=== PATIENT | female | born 1945 | race Two or more races ===

== ENCOUNTER 2023-02-14 20:08 | Inpatient (IN) | payer MEDICARE, OTHER ==
[~2023-02-14] VITALS: Ht 154.9 cm; Wt 59.0 kg
[~2023-02-14 20:08] MED LIST: ONDA4TAB5 PO
[2023-02-14] MEDS ORDERED: HALOPERIDOL LACTATE INJ 5 MG/ML VIAL ONE (20:13)
[2023-02-14] MEDS ORDERED: HALOPERIDOL LACTATE INJ 5 MG/ML VIAL IM ONE (20:30)
[2023-02-14 21:15] LABS: BASOPHILS % (AUTO) 0.2 % (0.0-2.0); EOSINOPHILS # (AUTO) 0.1 K/uL (0.0-0.7); EOSINOPHILS % (AUTO) 0.4 % (0.0-6.0); HEMATOCRIT 38 % (33-45); HEMOGLOBIN 12.3 g/dL (11.5-14.8); LYMPHOCYTES # (AUTO) 2.2 K/uL (0.8-4.8); LYMPHOCYTES % (AUTO) 17.5 % (20.0-44.0); MEAN CORPUSCULAR HEMOGLOBIN 28 PG (26.0-33.0); MEAN CORPUSCULAR HGB CONC 33 g/dl (31.0-36.0); MEAN CORPUSCULAR VOLUME 87 fL (82-100); MONOCYTES # (AUTO) 1.5 K/uL (0.1-1.30); MONOCYTES % (AUTO) 11.6 % (2.0-12.0); NEUTROPHILS # (AUTO) 8.8 K/uL (1.8-8.9); NEUTROPHILS % (AUTO) 70.3 % (43.0-81.0); PLATELET COUNT (AUTO) 297 K/uL (150-450); RED BLOOD CELL COUNT(AUTO) 4.38 MIL/uL (4.0-5.2); RED CELL DISTRIBUTION WIDTH 13.8 % (11.5-15.0); WHITE BLOOD COUNT (AUTO) 12.6 K/uL (4.3-11.0)
[2023-02-14] MEDS ORDERED: LORAZEPAM INJ 2 MG/ML VIAL ONE (21:16)
[2023-02-14] MEDS ORDERED: LORAZEPAM INJ 2 MG/ML VIAL IM ONE (21:30)
[2023-02-14 21:37] LABS: APPEARANCE,URINE SLIGHTLY CLOUDY (CLEAR); BILIRUBIN,URINE NEGATIVE (NEGATIVE); BLOOD, URINE 1+ Ery/uL (NEGATIVE); COLOR,URINE YELLOW (YELLOW); KETONES,URINE NEGATIVE (NEGATIVE); LEUKOCYTE ESTERASE ,URINE 1+ (NEGATIVE); NITRITE, URINE NEGATIVE (NEGATIVE); PH,URINE 5.5 (5.0-8.0); PROTEIN,URINE NEGATIVE (NEGATIVE); UGLUCOSE NEGATIVE (NEGATIVE); UROBILINOGEN,URINE 0.2 EU/dL (0.2)
[2023-02-14 21:50] LABS: AMPHETAMINE, URINE NEGATIVE (NEGATIVE); BARBITURATE, URINE NEGATIVE (NEGATIVE); BENZODIAZEPINE, URINE NEGATIVE (NEGATIVE); CANNABINOID, URINE NEGATIVE (NEGATIVE); COCCAINE, URINE NEGATIVE (NEGATIVE); OPIATE, URINE NEGATIVE (NEGATIVE); PHENCYCLIDINE SCREEN,URINE NEGATIVE (NEGATIVE)
[2023-02-14 21:52] LABS: ADD URINE CULTURE YES; BACTERIA,URINE 3+ /HPF (None Seen)
[2023-02-14 21:53] LABS: CARBON DIOXIDE 22 mmol/L (21-32); CHLORIDE 109 mmol/L (98-107); CREATININE 1.3 mg/dL (0.6-1.3); GLUCOSE 116 mg/dL (74-106); POTASSIUM 4.5 mmol/L (3.5-5.1); SODIUM SERUM 143 mmol/L (136-145); UREA NITROGEN, BLOOD 19 mg/dL (7-18)
[2023-02-14 21:59] LABS: ACETAMINOPHEN 0 ug/ml (10-30); ALANINE AMINOTRANSFERASE 20 U/L (12-78); ALBUMIN 3.7 g/dL (3.4-5.0); ALCOHOL, BLOOD < 3 mg/dL (0-10); ALKALINE PHOSPHATASE 140 U/L (46-116); ASPARTATE AMINOTRANSFERASE 20 U/L (15-37); BILIRUBIN,DIRECT 0.1 mg/dL (0.0-0.2); BILIRUBIN,TOTAL 0.5 mg/dL (0.2-1.0); SALICYLATE 1.7 mg/dL (2.8-20.0)
[2023-02-15 03:00] VITALS: BP 112/89; TEMP 97.6
[2023-02-15] MEDS ORDERED: MAGNESIUM HYDROXIDE 30 ML UDC PO PRN ×2 (03:00→13:00)
[2023-02-15] MEDS ORDERED: MAG HYDROX/AL HYDROX/SIMETH 30 ML UDC PO PRN (03:00)
[2023-02-15] MEDS ORDERED: Z GUARD REMEDY 4 OZ OINT TP PRN (03:30)
[2023-02-15] MEDS ORDERED: BLOOD SUGAR DIAGNOSTIC 1 EACH STRIP IN ONE (03:30)
[2023-02-15] MEDS ORDERED: ASPI-1169 PO (03:58)
[2023-02-15] MEDS ORDERED: CHOL400T11 PO (03:59)
[2023-02-15] MEDS ORDERED: CRAN400C PO (04:02)
[2023-02-15] MEDS ORDERED: DOCU100C36 PO (04:03)
[2023-02-15] MEDS ORDERED: FAMO20TA8 PO (04:04)
[2023-02-15] MEDS ORDERED: ALBU8.5H8 INH (04:05)
[2023-02-15] MEDS ORDERED: PROP20TA7 PO (04:07)
[2023-02-15] MEDS ORDERED: QUET50TA PO (04:08)
[2023-02-15] MEDS ORDERED: QUET25TA PO (04:08)
[2023-02-15] MEDS ORDERED: SIMV-46 PO (04:09)
[2023-02-15] MEDS ORDERED: LEVO112T5 PO (04:10)
[2023-02-15] MEDS ORDERED: TRAM50TA2 PO (04:11)
[2023-02-15] MEDS ORDERED: ASCO-317 PO (04:12)
[2023-02-15 08:00] VITALS: BP 113/84; TEMP 98.1; O2SAT 98
[2023-02-15] MEDS ORDERED: BISA10SU11 RC (08:24)
[2023-02-15] MEDS ORDERED: ONDA4TAB5 PO (08:24)
[2023-02-15] MEDS ORDERED: POVI3780 TP (08:24)
[2023-02-15] MEDS ORDERED: NA P133E RC (08:24)
[2023-02-15] MEDS ORDERED: MAGN400O6 PO (08:24)
[2023-02-15] MEDS: QUETIAPINE FUMARATE 25 MG TABLET PO SCH ×2 (09:27→16:28)
[2023-02-15] MEDS ORDERED: ALBUTEROL FS 2.5 MG/0.5 ML VIAL.NEB NEB PRN (13:30)
[2023-02-15] MEDS: LORAZEPAM 0.5 MG TABLET PO PRN (15:35)
[2023-02-15 16:00] VITALS: BP 134/100; TEMP 97.9; O2SAT 96
[2023-02-15] MEDS: PROPRANOLOL HCL 10 MG TABLET PO SCH (16:47)
[2023-02-15 20:00] VITALS: BP 117/82; TEMP 98.3; O2SAT 98
[2023-02-15] MEDS: SIMVASTATIN 20 MG TABLET PO SCH (21:38)
[2023-02-15] MEDS ORDERED: QUETIAPINE FUMARATE 25 MG TABLET PO SCH (22:00)
[2023-02-16] MEDS ORDERED: LEVOFLOXACIN (250MG) 250 MG TABLET PO SCH ×2 (00:21→09:00)
[2023-02-16 07:40] LABS: BASOPHILS % (AUTO) 0.3 % (0.0-2.0); EOSINOPHILS # (AUTO) 0.1 K/uL (0.0-0.7); HEMATOCRIT 36 % (33-45); HEMOGLOBIN 11.8 g/dL (11.5-14.8); LYMPHOCYTES # (AUTO) 1.4 K/uL (0.8-4.8); LYMPHOCYTES % (AUTO) 19.3 % (20.0-44.0); MEAN CORPUSCULAR HEMOGLOBIN 29 PG (26.0-33.0); MEAN CORPUSCULAR HGB CONC 33 g/dl (31.0-36.0); MEAN CORPUSCULAR VOLUME 87 fL (82-100); MONOCYTES # (AUTO) 0.7 K/uL (0.1-1.30); NEUTROPHILS % (AUTO) 69.4 % (43.0-81.0); PLATELET COUNT (AUTO) 242 K/uL (150-450); RED BLOOD CELL COUNT(AUTO) 4.12 MIL/uL (4.0-5.2); RED CELL DISTRIBUTION WIDTH 14.1 % (11.5-15.0); WHITE BLOOD COUNT (AUTO) 7.3 K/uL (4.3-11.0)
[2023-02-16 07:59] LABS: CALCIUM, SERUM 9.1 mg/dL (8.5-10.1); CARBON DIOXIDE 24 mmol/L (21-32); CHLORIDE 107 mmol/L (98-107); CREATININE 0.9 mg/dL (0.6-1.3); GLUCOSE 91 mg/dL (74-106); POTASSIUM 3.6 mmol/L (3.5-5.1); SODIUM SERUM 141 mmol/L (136-145); UREA NITROGEN, BLOOD 23 mg/dL (7-18)
[2023-02-16 08:00] VITALS: BP 115/85; TEMP 97.6; O2SAT 100
[2023-02-16 08:01] LABS: CHOLESTEROL 145 mg/dL (<200); HDL CHOLESTEROL 78 mg/dL (40-60); LDL 62 mg/dL (0-99); TRIGLYCERIDES 45 mg/dL (30-150)
[2023-02-16] MEDS: DOCUSATE SODIUM 100 MG CAPSULE PO SCH (08:15)
[2023-02-16] MEDS: FAMOTIDINE (20 MG) 20 MG TABLET PO SCH (08:15)
[2023-02-16] MEDS: ASPIRIN 81 MG TAB.CHEW PO SCH (08:15)
[2023-02-16] MEDS: LEVOFLOXACIN (250MG) 250 MG TABLET PO SCH (08:15)
[2023-02-16] MEDS: PROPRANOLOL HCL 10 MG TABLET PO SCH ×2 (08:16→17:44)
[2023-02-16] MEDS: LEVOTHYROXINE SODIUM 112 MCG TABLET PO SCH (08:16)
[2023-02-16] MEDS: risperiDONE 0.25 MG TABLET PO SCH ×2 (08:57→17:43)
[2023-02-16] MEDS: LORAZEPAM 0.5 MG TABLET PO PRN (10:54)
[2023-02-16 16:00] VITALS: BP 119/86; TEMP 98; O2SAT 96
[2023-02-16 21:09] VITALS: BP 129/91; TEMP 97.9; O2SAT 98
[2023-02-16] MEDS: SIMVASTATIN 20 MG TABLET PO SCH ×2 (21:46→22:00)
[2023-02-17] MEDS: ASPIRIN 81 MG TAB.CHEW PO SCH (08:07)
[2023-02-17] MEDS: LEVOTHYROXINE SODIUM 112 MCG TABLET PO SCH (08:07)
[2023-02-17] MEDS: risperiDONE 0.25 MG TABLET PO SCH ×3 (08:07→17:10)
[2023-02-17] MEDS: FAMOTIDINE (20 MG) 20 MG TABLET PO SCH (08:07)
[2023-02-17] MEDS: DOCUSATE SODIUM 100 MG CAPSULE PO SCH (08:08)
[2023-02-17] MEDS: LEVOFLOXACIN (250MG) 250 MG TABLET PO SCH (08:08)
[2023-02-17] MEDS: PROPRANOLOL HCL 10 MG TABLET PO SCH ×2 (09:00→17:10)
[2023-02-17] MEDS: LORAZEPAM 1 MG TABLET PO PRN (11:06)
[2023-02-17 16:00] VITALS: BP 140/86; TEMP 97.8; O2SAT 97
[2023-02-17] MEDS: SIMVASTATIN 20 MG TABLET PO SCH (21:54)
[2023-02-17] MEDS: TEMAZEPAM 7.5 MG CAPSULE PO PRN (21:55)
[2023-02-18] MEDS: LORAZEPAM 1 MG TABLET PO PRN ×2 (01:47→15:48)
[2023-02-18 08:00] VITALS: BP 119/88; TEMP 97.6; O2SAT 99
[2023-02-18] MEDS: DOCUSATE SODIUM 100 MG CAPSULE PO SCH (08:21)
[2023-02-18] MEDS: LEVOTHYROXINE SODIUM 112 MCG TABLET PO SCH (08:21)
[2023-02-18] MEDS: FAMOTIDINE (20 MG) 20 MG TABLET PO SCH (08:22)
[2023-02-18] MEDS: LEVOFLOXACIN (250MG) 250 MG TABLET PO SCH (08:22)
[2023-02-18] MEDS: ASPIRIN 81 MG TAB.CHEW PO SCH (08:22)
[2023-02-18] MEDS: PROPRANOLOL HCL 10 MG TABLET PO SCH ×2 (08:23→17:03)
[2023-02-18] MEDS: risperiDONE 0.25 MG TABLET PO SCH ×4 (09:08→21:51)
[2023-02-18 16:00] VITALS: BP 100/70; TEMP 98.2; O2SAT 100
[2023-02-18 20:34] VITALS: BP 109/72; TEMP 97.9; O2SAT 100
[2023-02-18] MEDS: SIMVASTATIN 20 MG TABLET PO SCH (21:51)
[2023-02-19 08:00] VITALS: BP 127/83; TEMP 98.6; O2SAT 96
[2023-02-19] MEDS: risperiDONE 0.25 MG TABLET PO SCH ×4 (08:06→21:10)
[2023-02-19] MEDS: LEVOTHYROXINE SODIUM 112 MCG TABLET PO SCH (08:06)
[2023-02-19] MEDS: PROPRANOLOL HCL 10 MG TABLET PO SCH ×2 (08:06→16:49)
[2023-02-19] MEDS: DOCUSATE SODIUM 100 MG CAPSULE PO SCH (08:06)
[2023-02-19] MEDS: LEVOFLOXACIN (250MG) 250 MG TABLET PO SCH (08:06)
[2023-02-19] MEDS: ASPIRIN 81 MG TAB.CHEW PO SCH (08:06)
[2023-02-19] MEDS: FAMOTIDINE (20 MG) 20 MG TABLET PO SCH (08:07)
[2023-02-19 16:00] VITALS: BP 104/74; TEMP 98.1; O2SAT 97
[2023-02-19] MEDS: SIMVASTATIN 20 MG TABLET PO SCH (21:10)
[2023-02-19] MEDS: TEMAZEPAM 7.5 MG CAPSULE PO PRN (22:52)
[2023-02-20] MEDS: LEVOTHYROXINE SODIUM 112 MCG TABLET PO SCH (07:12)
[2023-02-20 08:00] VITALS: BP 110/83; TEMP 97.7; O2SAT 98
[2023-02-20] MEDS: risperiDONE 0.25 MG TABLET PO SCH ×3 (08:10→12:30)
[2023-02-20] MEDS: DOCUSATE SODIUM 100 MG CAPSULE PO SCH ×2 (08:10→08:22)
[2023-02-20] MEDS: FAMOTIDINE (20 MG) 20 MG TABLET PO SCH ×2 (08:10→08:22)
[2023-02-20] MEDS: LEVOFLOXACIN (250MG) 250 MG TABLET PO SCH ×2 (08:10→08:22)
[2023-02-20] MEDS: ASPIRIN 81 MG TAB.CHEW PO SCH ×2 (08:10→08:22)
[2023-02-20] MEDS: PROPRANOLOL HCL 10 MG TABLET PO SCH ×3 (08:11→16:41)
[2023-02-20] MEDS ORDERED: OLANZAPINE 10 MG VIAL IM STA ×2 (08:21→14:42)
[2023-02-20] MEDS: risperiDONE-M 0.5 MG TAB.RAPDIS PO SCH ×2 (16:58→22:00)
[2023-02-20 20:11] VITALS: BP 112/97; TEMP 99; O2SAT 100
[2023-02-20] MEDS: SIMVASTATIN 20 MG TABLET PO SCH (22:00)
[2023-02-20] MEDS: TEMAZEPAM 7.5 MG CAPSULE PO PRN (23:10)
[2023-02-21] MEDS: LEVOTHYROXINE SODIUM 112 MCG TABLET PO SCH (07:47)
[2023-02-21 08:00] VITALS: BP 122/84; TEMP 97.5; O2SAT 100
[2023-02-21] MEDS: FAMOTIDINE (20 MG) 20 MG TABLET PO SCH (08:02)
[2023-02-21] MEDS: DOCUSATE SODIUM 100 MG CAPSULE PO SCH (08:02)
[2023-02-21] MEDS: PROPRANOLOL HCL 10 MG TABLET PO SCH ×2 (08:02→17:00)
[2023-02-21] MEDS: risperiDONE-M 0.5 MG TAB.RAPDIS PO SCH ×3 (08:02→21:40)
[2023-02-21] MEDS: ASPIRIN 81 MG TAB.CHEW PO SCH (08:02)
[2023-02-21 16:00] VITALS: BP 100/70; TEMP 97.5; O2SAT 98
[2023-02-21] MEDS: SIMVASTATIN 20 MG TABLET PO SCH (21:40)
[2023-02-22] MEDS: LEVOTHYROXINE SODIUM 112 MCG TABLET PO SCH (06:30)
[2023-02-22 08:00] VITALS: BP 124/75; TEMP 97.6; O2SAT 100
[2023-02-22] MEDS: FAMOTIDINE (20 MG) 20 MG TABLET PO SCH (08:00)
[2023-02-22] MEDS: DOCUSATE SODIUM 100 MG CAPSULE PO SCH (08:00)
[2023-02-22] MEDS: ASPIRIN 81 MG TAB.CHEW PO SCH (08:00)
[2023-02-22] MEDS: PROPRANOLOL HCL 10 MG TABLET PO SCH ×2 (08:01→16:26)
[2023-02-22] MEDS: risperiDONE-M 0.5 MG TAB.RAPDIS PO SCH ×3 (08:01→21:30)
[2023-02-22] MEDS: TRAMADOL HCL 50 MG TABLET PO PRN (08:58)
[2023-02-22] MEDS: LORAZEPAM 1 MG TABLET PO PRN ×2 (10:56→22:07)
[2023-02-22 16:00] VITALS: BP 114/73; TEMP 98.1; O2SAT 99
[2023-02-22 20:12] VITALS: BP 130/79; TEMP 98.2; O2SAT 96
[2023-02-22] MEDS: SIMVASTATIN 20 MG TABLET PO SCH (21:30)
[2023-02-23 08:00] VITALS: BP 114/85; TEMP 98.2; O2SAT 93
[2023-02-23] MEDS: LEVOTHYROXINE SODIUM 112 MCG TABLET PO SCH (08:38)
[2023-02-23] MEDS: ASPIRIN 81 MG TAB.CHEW PO SCH (08:53)
[2023-02-23] MEDS: risperiDONE-M 0.5 MG TAB.RAPDIS PO SCH ×4 (08:53→21:17)
[2023-02-23] MEDS: FAMOTIDINE (20 MG) 20 MG TABLET PO SCH (08:53)
[2023-02-23] MEDS: DOCUSATE SODIUM 100 MG CAPSULE PO SCH (08:53)
[2023-02-23] MEDS: PROPRANOLOL HCL 10 MG TABLET PO SCH ×2 (08:54→16:21)
[2023-02-23 16:00] VITALS: BP 101/62; TEMP 97.6; O2SAT 99
[2023-02-23 20:03] VITALS: BP 111/76; TEMP 97.9; O2SAT 97
[2023-02-23] MEDS: SIMVASTATIN 20 MG TABLET PO SCH (21:17)
[2023-02-24 07:45] LABS: BASOPHILS % (AUTO) 0.3 % (0.0-2.0); EOSINOPHILS # (AUTO) 0.1 K/uL (0.0-0.7); HEMATOCRIT 35 % (33-45); HEMOGLOBIN 11.5 g/dL (11.5-14.8); LYMPHOCYTES # (AUTO) 1.7 K/uL (0.8-4.8); LYMPHOCYTES % (AUTO) 18.1 % (20.0-44.0); MEAN CORPUSCULAR HEMOGLOBIN 28 PG (26.0-33.0); MEAN CORPUSCULAR HGB CONC 33 g/dl (31.0-36.0); MEAN CORPUSCULAR VOLUME 86 fL (82-100); MONOCYTES # (AUTO) 0.7 K/uL (0.1-1.30); MONOCYTES % (AUTO) 7.2 % (2.0-12.0); NEUTROPHILS # (AUTO) 6.8 K/uL (1.8-8.9); NEUTROPHILS % (AUTO) 73.4 % (43.0-81.0); PLATELET COUNT (AUTO) 279 K/uL (150-450); RED BLOOD CELL COUNT(AUTO) 4.04 MIL/uL (4.0-5.2); RED CELL DISTRIBUTION WIDTH 13.9 % (11.5-15.0); WHITE BLOOD COUNT (AUTO) 9.2 K/uL (4.3-11.0)
[2023-02-24 08:00] VITALS: BP 114/75; TEMP 97.6; O2SAT 100
[2023-02-24 08:00] LABS: CALCIUM, SERUM 9.3 mg/dL (8.5-10.1); CARBON DIOXIDE 21 mmol/L (21-32); CHLORIDE 106 mmol/L (98-107); CREATININE 1.1 mg/dL (0.6-1.3); GLUCOSE 232 mg/dL (74-106); MAGNESIUM 2.4 mg/dL (1.8-2.4); PHOSPHORUS 2.8 mg/dL (2.5-4.9); POTASSIUM 3.5 mmol/L (3.5-5.1); SODIUM SERUM 141 mmol/L (136-145); UREA NITROGEN, BLOOD 23 mg/dL (7-18)
[2023-02-24] MEDS: LEVOTHYROXINE SODIUM 112 MCG TABLET PO SCH (08:32)
[2023-02-24] MEDS: risperiDONE-M 0.5 MG TAB.RAPDIS PO SCH ×4 (08:38→21:28)
[2023-02-24] MEDS: DOCUSATE SODIUM 100 MG CAPSULE PO SCH (08:38)
[2023-02-24] MEDS: FAMOTIDINE (20 MG) 20 MG TABLET PO SCH (08:38)
[2023-02-24] MEDS: ASPIRIN 81 MG TAB.CHEW PO SCH (08:38)
[2023-02-24] MEDS: PROPRANOLOL HCL 10 MG TABLET PO SCH ×2 (08:39→17:41)
[2023-02-24 16:00] VITALS: BP 107/73; TEMP 98.8; O2SAT 99
[2023-02-24 20:06] VITALS: BP 104/75; TEMP 98; O2SAT 100
[2023-02-24] MEDS: SIMVASTATIN 20 MG TABLET PO SCH (21:29)
[2023-02-25] MEDS: TRAMADOL HCL 50 MG TABLET PO PRN (01:02)
[2023-02-25 08:00] VITALS: BP 102/69; TEMP 98.7; O2SAT 97
[2023-02-25] MEDS: LEVOTHYROXINE SODIUM 112 MCG TABLET PO SCH (08:25)
[2023-02-25] MEDS: PROPRANOLOL HCL 10 MG TABLET PO SCH ×2 (09:00→17:15)
[2023-02-25] MEDS: DOCUSATE SODIUM 100 MG CAPSULE PO SCH (09:22)
[2023-02-25] MEDS: FAMOTIDINE (20 MG) 20 MG TABLET PO SCH (09:23)
[2023-02-25] MEDS: risperiDONE-M 0.5 MG TAB.RAPDIS PO SCH ×4 (09:23→21:18)
[2023-02-25] MEDS: ASPIRIN 81 MG TAB.CHEW PO SCH (09:23)
[2023-02-25 16:00] VITALS: BP 105/70; TEMP 98.6; O2SAT 99
[2023-02-25] MEDS: SIMVASTATIN 20 MG TABLET PO SCH (21:18)
[2023-02-26] MEDS: TRAMADOL HCL 50 MG TABLET PO PRN (01:15)
[2023-02-26] MEDS: LORAZEPAM 1 MG TABLET PO PRN ×2 (03:50→12:37)
[2023-02-26] MEDS: LEVOTHYROXINE SODIUM 112 MCG TABLET PO SCH (07:54)
[2023-02-26 08:00] VITALS: BP 113/77; TEMP 97.9; O2SAT 100
[2023-02-26] MEDS: ASPIRIN 81 MG TAB.CHEW PO SCH (09:38)
[2023-02-26] MEDS: DOCUSATE SODIUM 100 MG CAPSULE PO SCH (09:39)
[2023-02-26] MEDS: PROPRANOLOL HCL 10 MG TABLET PO SCH ×2 (09:39→16:15)
[2023-02-26] MEDS: FAMOTIDINE (20 MG) 20 MG TABLET PO SCH (09:40)
[2023-02-26] MEDS: risperiDONE-M 0.5 MG TAB.RAPDIS PO SCH ×4 (09:40→21:05)
[2023-02-26 15:38] VITALS: BP 129/100; TEMP 98.7; O2SAT 100
[2023-02-26 16:00] VITALS: BP 129/100; TEMP 98.7; O2SAT 100
[2023-02-26 20:33] VITALS: BP 125/80; TEMP 97.8; O2SAT 98
[2023-02-26] MEDS: SIMVASTATIN 20 MG TABLET PO SCH (21:05)
[2023-02-26] MEDS: TEMAZEPAM 7.5 MG CAPSULE PO PRN (21:49)
[2023-02-27] MEDS: LEVOTHYROXINE SODIUM 112 MCG TABLET PO SCH (07:28)
[2023-02-27 08:00] VITALS: BP 120/75; TEMP 97.6; O2SAT 98
[2023-02-27] MEDS: risperiDONE-M 0.5 MG TAB.RAPDIS PO SCH ×4 (08:06→22:25)
[2023-02-27] MEDS: ASPIRIN 81 MG TAB.CHEW PO SCH (08:06)
[2023-02-27] MEDS: DOCUSATE SODIUM 100 MG CAPSULE PO SCH (08:06)
[2023-02-27] MEDS: FAMOTIDINE (20 MG) 20 MG TABLET PO SCH (08:06)
[2023-02-27] MEDS: PROPRANOLOL HCL 10 MG TABLET PO SCH ×2 (08:07→16:58)
[2023-02-27] MEDS: LORAZEPAM 1 MG TABLET PO PRN ×4 (15:28→19:43)
[2023-02-27] MEDS: SIMVASTATIN 20 MG TABLET PO SCH (22:04)
[2023-02-27] MEDS ORDERED: risperiDONE-M 0.5 MG TAB.RAPDIS ONE (22:19)
[2023-02-28 06:51] LABS: BASOPHILS % (AUTO) 0.3 % (0.0-2.0); EOSINOPHILS # (AUTO) 0.1 K/uL (0.0-0.7); EOSINOPHILS % (AUTO) 0.9 % (0.0-6.0); HEMATOCRIT 33 % (33-45); HEMOGLOBIN 10.9 g/dL (11.5-14.8); LYMPHOCYTES # (AUTO) 1.9 K/uL (0.8-4.8); MEAN CORPUSCULAR HEMOGLOBIN 28 PG (26.0-33.0); MEAN CORPUSCULAR HGB CONC 33 g/dl (31.0-36.0); MEAN CORPUSCULAR VOLUME 86 fL (82-100); MONOCYTES # (AUTO) 0.6 K/uL (0.1-1.30); MONOCYTES % (AUTO) 7.5 % (2.0-12.0); NEUTROPHILS # (AUTO) 5.2 K/uL (1.8-8.9); NEUTROPHILS % (AUTO) 67.3 % (43.0-81.0); PLATELET COUNT (AUTO) 310 K/uL (150-450); RED BLOOD CELL COUNT(AUTO) 3.83 MIL/uL (4.0-5.2); RED CELL DISTRIBUTION WIDTH 14.3 % (11.5-15.0); WHITE BLOOD COUNT (AUTO) 7.8 K/uL (4.3-11.0)
[2023-02-28 07:01] LABS: BILIRUBIN,TOTAL 0.4 mg/dL (0.2-1.0); CALCIUM, SERUM 9.8 mg/dL (8.5-10.1); CREATININE 1.1 mg/dL (0.6-1.3); POTASSIUM 3.6 mmol/L (3.5-5.1); TOTAL PROTEIN, SERUM 6.3 g/dL (6.4-8.2)
[2023-02-28] MEDS: LEVOTHYROXINE SODIUM 112 MCG TABLET PO SCH (07:30)
[2023-02-28 08:00] VITALS: BP 127/80; TEMP 97.8; O2SAT 93
[2023-02-28] MEDS ORDERED: OLANZAPINE 10 MG VIAL IM ONE (08:30)
[2023-02-28] MEDS: FAMOTIDINE (20 MG) 20 MG TABLET PO SCH (08:34)
[2023-02-28] MEDS: PROPRANOLOL HCL 10 MG TABLET PO SCH ×2 (08:34→16:57)
[2023-02-28] MEDS: DOCUSATE SODIUM 100 MG CAPSULE PO SCH (08:34)
[2023-02-28] MEDS: ASPIRIN 81 MG TAB.CHEW PO SCH (08:34)
[2023-02-28] MEDS: risperiDONE-M 0.5 MG TAB.RAPDIS PO SCH ×4 (08:35→21:30)
[2023-02-28] MEDS ORDERED: LORAZEPAM INJ 2 MG/ML VIAL IM ONE (12:30)
[2023-02-28 16:00] VITALS: BP 110/61; TEMP 97.8; O2SAT 96
[2023-02-28] MEDS: LORAZEPAM 0.5 MG TABLET PO SCH (16:57)
[2023-02-28 20:00] VITALS: BP 123/81; TEMP 98.2; O2SAT 96
[2023-02-28] MEDS: SIMVASTATIN 20 MG TABLET PO SCH (21:31)
[2023-03-01 08:00] VITALS: BP 121/77; TEMP 98; O2SAT 100
[2023-03-01] MEDS: DOCUSATE SODIUM 100 MG CAPSULE PO SCH (08:50)
[2023-03-01] MEDS: risperiDONE-M 0.5 MG TAB.RAPDIS PO SCH ×4 (08:50→22:15)
[2023-03-01] MEDS: LEVOTHYROXINE SODIUM 112 MCG TABLET PO SCH (08:50)
[2023-03-01] MEDS: ASPIRIN 81 MG TAB.CHEW PO SCH (08:50)
[2023-03-01] MEDS: FAMOTIDINE (20 MG) 20 MG TABLET PO SCH (08:50)
[2023-03-01] MEDS: PROPRANOLOL HCL 10 MG TABLET PO SCH ×2 (08:51→17:33)
[2023-03-01] MEDS: LORAZEPAM 0.5 MG TABLET PO SCH ×3 (08:51→17:32)
[2023-03-01 16:00] VITALS: BP 113/75; TEMP 97.6; O2SAT 99
[2023-03-01] MEDS: BACITRACIN ZINC OINT (15 GM) 15 GM TUBE TP SCH (17:32)
[2023-03-01] MEDS: SIMVASTATIN 20 MG TABLET PO SCH (21:21)
[2023-03-01] MEDS: TEMAZEPAM 7.5 MG CAPSULE PO PRN (23:00)
[2023-03-02] MEDS: LORAZEPAM 1 MG TABLET PO PRN (01:04)
[2023-03-02 08:00] VITALS: BP 124/92; TEMP 97.7; O2SAT 96
[2023-03-02] MEDS: risperiDONE-M 0.5 MG TAB.RAPDIS PO SCH (09:00)
[2023-03-02] MEDS: ASPIRIN 81 MG TAB.CHEW PO SCH (09:15)
[2023-03-02] MEDS: LORAZEPAM 0.5 MG TABLET PO SCH ×3 (09:15→16:56)
[2023-03-02] MEDS: DOCUSATE SODIUM 100 MG CAPSULE PO SCH (09:17)
[2023-03-02] MEDS: LEVOTHYROXINE SODIUM 112 MCG TABLET PO SCH (09:17)
[2023-03-02] MEDS: PROPRANOLOL HCL 10 MG TABLET PO SCH ×2 (09:17→16:56)
[2023-03-02] MEDS: FAMOTIDINE (20 MG) 20 MG TABLET PO SCH (09:17)
[2023-03-02] MEDS: BACITRACIN ZINC OINT (15 GM) 15 GM TUBE TP SCH ×2 (09:30→17:53)
[2023-03-02] MEDS: RISPERIDONE 1 MG TAB.RAPDIS PO SCH ×3 (14:01→21:44)
[2023-03-02 16:00] VITALS: BP 121/74; TEMP 97.8; O2SAT 96
[2023-03-02] MEDS ORDERED: RISPERIDONE 1 MG TAB.RAPDIS PO SCH (17:00)
[2023-03-02] MEDS: SIMVASTATIN 20 MG TABLET PO SCH (21:44)
[2023-03-03 08:00] VITALS: BP 118/75; TEMP 97.9; O2SAT 96
[2023-03-03] MEDS: DOCUSATE SODIUM 100 MG CAPSULE PO SCH (08:09)
[2023-03-03] MEDS: LEVOTHYROXINE SODIUM 112 MCG TABLET PO SCH (08:09)
[2023-03-03] MEDS: FAMOTIDINE (20 MG) 20 MG TABLET PO SCH (08:10)
[2023-03-03] MEDS: LORAZEPAM 0.5 MG TABLET PO SCH ×3 (08:10→17:43)
[2023-03-03] MEDS: ASPIRIN 81 MG TAB.CHEW PO SCH (08:10)
[2023-03-03] MEDS: PROPRANOLOL HCL 10 MG TABLET PO SCH ×2 (08:11→17:43)
[2023-03-03] MEDS: BACITRACIN ZINC OINT (15 GM) 15 GM TUBE TP SCH ×2 (08:11→17:41)
[2023-03-03] MEDS: RISPERIDONE 1 MG TAB.RAPDIS PO SCH ×4 (08:32→21:15)
[2023-03-03 16:00] VITALS: BP 121/86; TEMP 97.8; O2SAT 97
[2023-03-03 20:44] VITALS: BP 106/70; TEMP 97.9; O2SAT 100
[2023-03-03] MEDS: SIMVASTATIN 20 MG TABLET PO SCH (21:16)
[2023-03-04] MEDS: TEMAZEPAM 7.5 MG CAPSULE PO PRN ×2 (00:33→23:00)
[2023-03-04] MEDS: LEVOTHYROXINE SODIUM 112 MCG TABLET PO SCH ×2 (07:30→08:28)
[2023-03-04 08:00] VITALS: BP 136/90; TEMP 97.9; O2SAT 98
[2023-03-04] MEDS: FAMOTIDINE (20 MG) 20 MG TABLET PO SCH ×2 (08:28→09:00)
[2023-03-04] MEDS: ASPIRIN 81 MG TAB.CHEW PO SCH ×2 (08:28→09:00)
[2023-03-04] MEDS: LORAZEPAM 0.5 MG TABLET PO SCH ×4 (08:28→17:00)
[2023-03-04] MEDS: DOCUSATE SODIUM 100 MG CAPSULE PO SCH ×2 (08:28→09:00)
[2023-03-04] MEDS: BACITRACIN ZINC OINT (15 GM) 15 GM TUBE TP SCH ×3 (08:29→17:00)
[2023-03-04] MEDS: PROPRANOLOL HCL 10 MG TABLET PO SCH ×3 (08:29→17:00)
[2023-03-04] MEDS: RISPERIDONE 1 MG TAB.RAPDIS PO SCH ×3 (09:00→17:00)
[2023-03-04] MEDS ORDERED: OLANZAPINE 10 MG VIAL IM ONE ×2 (10:00→15:30)
[2023-03-04] MEDS: LORAZEPAM 1 MG TABLET PO PRN ×2 (14:51→15:03)
[2023-03-04 16:00] VITALS: BP 121/90; TEMP 97.7; O2SAT 98
[2023-03-04 20:43] VITALS: BP 122/81; TEMP 97.5; O2SAT 100
[2023-03-04] MEDS: SIMVASTATIN 20 MG TABLET PO SCH (21:14)
[2023-03-05] MEDS: TRAMADOL HCL 50 MG TABLET PO PRN (01:31)
[2023-03-05 07:08] LABS: BASOPHILS % (AUTO) 0.4 % (0.0-2.0); EOSINOPHILS # (AUTO) 0.1 K/uL (0.0-0.7); EOSINOPHILS % (AUTO) 2.3 % (0.0-6.0); HEMATOCRIT 31 % (33-45); HEMOGLOBIN 10.1 g/dL (11.5-14.8); LYMPHOCYTES # (AUTO) 1.5 K/uL (0.8-4.8); LYMPHOCYTES % (AUTO) 25.4 % (20.0-44.0); MEAN CORPUSCULAR HEMOGLOBIN 29 PG (26.0-33.0); MEAN CORPUSCULAR HGB CONC 33 g/dl (31.0-36.0); MEAN CORPUSCULAR VOLUME 87 fL (82-100); MONOCYTES # (AUTO) 0.6 K/uL (0.1-1.30); MONOCYTES % (AUTO) 10.5 % (2.0-12.0); NEUTROPHILS # (AUTO) 3.7 K/uL (1.8-8.9); NEUTROPHILS % (AUTO) 61.4 % (43.0-81.0); PLATELET COUNT (AUTO) 333 K/uL (150-450); RED BLOOD CELL COUNT(AUTO) 3.54 MIL/uL (4.0-5.2); RED CELL DISTRIBUTION WIDTH 14.9 % (11.5-15.0)
[2023-03-05 07:36] LABS: ALBUMIN 2.8 g/dL (3.4-5.0); BILIRUBIN,TOTAL 0.4 mg/dL (0.2-1.0); CALCIUM, SERUM 9.1 mg/dL (8.5-10.1); CREATININE 0.9 mg/dL (0.6-1.3); POTASSIUM 3.4 mmol/L (3.5-5.1); TOTAL PROTEIN, SERUM 5.9 g/dL (6.4-8.2)
[2023-03-05 08:00] VITALS: BP 117/93; TEMP 97.7; O2SAT 96
[2023-03-05] MEDS: LEVOTHYROXINE SODIUM 112 MCG TABLET PO SCH (08:36)
[2023-03-05] MEDS: OLANZAPINE ZYDIS 5 MG TAB.RAPDIS PO SCH ×3 (08:37→16:21)
[2023-03-05] MEDS: DOCUSATE SODIUM 100 MG CAPSULE PO SCH (08:37)
[2023-03-05] MEDS: LORAZEPAM 0.5 MG TABLET PO SCH ×3 (08:38→16:21)
[2023-03-05] MEDS: PROPRANOLOL HCL 10 MG TABLET PO SCH ×2 (08:38→16:20)
[2023-03-05] MEDS: ASPIRIN 81 MG TAB.CHEW PO SCH (08:39)
[2023-03-05] MEDS: FAMOTIDINE (20 MG) 20 MG TABLET PO SCH (08:39)
[2023-03-05] MEDS: BACITRACIN ZINC OINT (15 GM) 15 GM TUBE TP SCH ×2 (08:39→16:21)
[2023-03-05] MEDS ORDERED: POTASSIUM CHLORIDE 20 MEQ TAB.PRT.SR PO SCH (10:00)
[2023-03-05 16:07] VITALS: BP 114/77; TEMP 97.9; O2SAT 96
[2023-03-05] MEDS: TEMAZEPAM 7.5 MG CAPSULE PO PRN (21:23)
[2023-03-05] MEDS: SIMVASTATIN 20 MG TABLET PO SCH (21:23)
[2023-03-05 21:35] VITALS: BP 115/69; TEMP 97.8; O2SAT 100
[2023-03-06 08:00] VITALS: BP 112/68; TEMP 97.8; O2SAT 97
[2023-03-06] MEDS: LORAZEPAM 0.5 MG TABLET PO SCH ×3 (09:48→17:16)
[2023-03-06] MEDS: FAMOTIDINE (20 MG) 20 MG TABLET PO SCH (09:48)
[2023-03-06] MEDS: ASPIRIN 81 MG TAB.CHEW PO SCH (09:48)
[2023-03-06] MEDS: LEVOTHYROXINE SODIUM 112 MCG TABLET PO SCH (09:48)
[2023-03-06] MEDS: PROPRANOLOL HCL 10 MG TABLET PO SCH ×2 (09:49→17:17)
[2023-03-06] MEDS: OLANZAPINE ZYDIS 5 MG TAB.RAPDIS PO SCH ×3 (09:50→17:16)
[2023-03-06] MEDS: DOCUSATE SODIUM 100 MG CAPSULE PO SCH (09:50)
[2023-03-06] MEDS: BACITRACIN ZINC OINT (15 GM) 15 GM TUBE TP SCH ×2 (09:55→17:23)
[2023-03-06 16:00] VITALS: BP_SYST 106; BP_SYST 127; BP_DIAS 69; BP_DIAS 83; TEMP 97.8; TEMP 98.5; O2SAT 98
[2023-03-06 20:21] VITALS: BP 104/65; TEMP 99; O2SAT 97
[2023-03-06] MEDS: SIMVASTATIN 20 MG TABLET PO SCH (21:06)
[2023-03-06] MEDS: TEMAZEPAM 7.5 MG CAPSULE PO PRN (21:07)
[2023-03-07] MEDS: LORAZEPAM 1 MG TABLET PO PRN (02:34)
[2023-03-07 08:00] VITALS: BP 126/94; TEMP 97.8; O2SAT 98
[2023-03-07] MEDS: ASPIRIN 81 MG TAB.CHEW PO SCH (08:17)
[2023-03-07] MEDS: LEVOTHYROXINE SODIUM 112 MCG TABLET PO SCH (08:17)
[2023-03-07 08:18] VITALS: BP 126/94
[2023-03-07] MEDS: OLANZAPINE ZYDIS 5 MG TAB.RAPDIS PO SCH ×2 (08:18→12:51)
[2023-03-07] MEDS: DOCUSATE SODIUM 100 MG CAPSULE PO SCH (08:18)
[2023-03-07] MEDS: LORAZEPAM 0.5 MG TABLET PO SCH ×2 (08:18→12:51)
[2023-03-07] MEDS: PROPRANOLOL HCL 10 MG TABLET PO SCH (08:18)
[2023-03-07] MEDS: FAMOTIDINE (20 MG) 20 MG TABLET PO SCH (08:19)
[2023-03-07] MEDS: BACITRACIN ZINC OINT (15 GM) 15 GM TUBE TP SCH (09:07)
== END 2023-03-07 13:30 | DRG 885 ==
LOC: ER 20:09 → GPS 02-15 01:25
PROVIDERS: ADMIT Nurse Practitioner Psychiatric/Mental Health; ATTEND Legal Medicine
DX: F20.9 Schizophrenia, unspecified (principal); N18.9 Chronic kidney disease, unspecified; F03.918 Unspecified dementia, unspecified severity, with other behavioral disturbance; N39.0 Urinary tract infection, site not specified; F03.94 Unspecified dementia, unspecified severity, with anxiety; F03.93 Unspecified dementia, unspecified severity, with mood disturbance; F03.911 Unspecified dementia, unspecified severity, with agitation; F29 Unspecified psychosis not due to a substance or known physiological condition; I12.9 Hypertensive chronic kidney disease with stage 1 through stage 4 chronic kidney disease, or unspecified chronic kidney disease; E11.22 Type 2 diabetes mellitus with diabetic chronic kidney disease; K21.9 Gastro-esophageal reflux disease without esophagitis; Z87.19 Personal history of other diseases of the digestive system; Z91.148 Patient's other noncompliance with medication regimen for other reason; M47.9 Spondylosis, unspecified; K64.9 Unspecified hemorrhoids; Z88.0 Allergy status to penicillin; Z88.6 Allergy status to analgesic agent; Z88.8 Allergy status to other drugs, medicaments and biological substances; Z79.899 Other long term (current) drug therapy; E78.5 Hyperlipidemia, unspecified; E03.9 Hypothyroidism, unspecified; M19.90 Unspecified osteoarthritis, unspecified site; I25.10 Atherosclerotic heart disease of native coronary artery without angina pectoris; M20.41 Other hammer toe(s) (acquired), right foot; M20.42 Other hammer toe(s) (acquired), left foot; M21.612 Bunion of left foot; M21.611 Bunion of right foot; D72.829 Elevated white blood cell count, unspecified; F41.9 Anxiety disorder, unspecified; F32.A Depression, unspecified
CPT/HCPCS: 36415; 71045-TC; 76705-TC; 80048-TC; 80053-TC; 80061-TC; 80076-TC; 81001; 83690-TC; 83735-TC; 84100-TC; 84484-TC; 85025-TC; 87081-TC; 87086-TC; 97116-TC; 97530-TC; C9803; G0480; J1630; J2060; J3490

== ENCOUNTER 2024-10-01 14:54 | Inpatient (IN) | payer MEDICARE, OTHER ==
[~2024-10-01] VITALS: Ht 162.6 cm; Wt 71.2 kg
[~2024-10-01 14:54] MED LIST changes: +ALBU8.5H8 INH; +ASCO-317 PO; +ASPI-1169 PO; +BISA10SU11 RC; +CHOL400T11 PO; +CRAN400C PO; +DOCU100C36 PO; +FAMO20TA8 PO; +LEVO112T5 PO; +MAGN400O6 PO; +NA P133E RC; +POVI3780 TP; +PROP20TA7 PO; +QUET25TA PO; +QUET50TA PO; +SIMV-46 PO; +TRAM50TA2 PO
[2024-10-01 15:25] LABS: BASOPHILS # (AUTO) 0.1 K/uL (0.0-0.2); BASOPHILS % (AUTO) 0.5 % (0.0-2.0); EOSINOPHILS # (AUTO) 0.2 K/uL (0.0-0.7); EOSINOPHILS % (AUTO) 1.5 % (0.0-6.0); HEMATOCRIT 37 % (33-45); HEMOGLOBIN 12.2 g/dL (11.5-14.8); LYMPHOCYTES # (AUTO) 1.5 K/uL (0.8-4.8); LYMPHOCYTES % (AUTO) 14.5 % (20.0-44.0); MEAN CORPUSCULAR HEMOGLOBIN 30 PG (26.0-33.0); MEAN CORPUSCULAR HGB CONC 33 g/dl (31.0-36.0); MEAN CORPUSCULAR VOLUME 90 fL (82-100); MONOCYTES # (AUTO) 0.7 K/uL (0.1-1.30); MONOCYTES % (AUTO) 6.4 % (2.0-12.0); NEUTROPHILS # (AUTO) 7.9 K/uL (1.8-8.9); NEUTROPHILS % (AUTO) 77.1 % (43.0-81.0); PLATELET COUNT (AUTO) 269 K/uL (150-450); RED BLOOD CELL COUNT(AUTO) 4.07 MIL/uL (4.0-5.2); RED CELL DISTRIBUTION WIDTH 13.8 % (11.5-15.0); WHITE BLOOD COUNT (AUTO) 10.3 K/uL (4.3-11.0)
[2024-10-01 15:49] LABS: CALCIUM, SERUM 10.1 mg/dL (8.5-10.1); CARBON DIOXIDE 25 mmol/L (21-32); CHLORIDE 110 mmol/L (98-107); CREATININE 1.1 mg/dL (0.6-1.3); GLUCOSE 164 mg/dL (74-106); SODIUM SERUM 144 mmol/L (136-145); UREA NITROGEN, BLOOD 18 mg/dL (7-18)
[2024-10-01 15:55] LABS: ALANINE AMINOTRANSFERASE 24 U/L (12-78); ALKALINE PHOSPHATASE 140 U/L (46-116); ASPARTATE AMINOTRANSFERASE 15 U/L (15-37); BILIRUBIN,DIRECT 0.1 mg/dL (0.0-0.2); BILIRUBIN,TOTAL 0.4 mg/dL (0.2-1.0); SALICYLATE 1.6 mg/dL (2.8-20.0); TOTAL PROTEIN, SERUM 7.1 g/dL (6.4-8.2)
[2024-10-01 15:56] LABS: ACETAMINOPHEN <10 ug/ml (10-30); ALCOHOL, BLOOD < 3 mg/dL (0-10)
[2024-10-01] MEDS ORDERED: HALO5TAB8 PO (16:28)
[2024-10-01] MEDS ORDERED: CHLO25AM IM (16:28)
[2024-10-01] MEDS ORDERED: LIDO30CR47 TP (16:28)
[2024-10-01] MEDS ORDERED: FAMO20TA80 PO (16:28)
[2024-10-01] MEDS ORDERED: PROP20TA7 PO (16:28)
[2024-10-01] MEDS ORDERED: GUAI400T11 PO (16:28)
[2024-10-01] MEDS ORDERED: CHOL100062 PO (16:28)
[2024-10-01] MEDS ORDERED: ESCI5TAB PO (16:28)
[2024-10-01] MEDS ORDERED: GABA-532 PO (16:28)
[2024-10-01] MEDS ORDERED: VALP250S4 PO (16:28)
[2024-10-01] MEDS ORDERED: LORA-259 PO (16:28)
[2024-10-01] MEDS ORDERED: SENN8.6T19 PO (16:28)
[2024-10-01] MEDS ORDERED: TAMS-12 PO (16:28)
[2024-10-01] MEDS ORDERED: BISA5TAB10 PO (16:28)
[2024-10-01] MEDS ORDERED: LEVO137T24 PO (16:28)
[2024-10-01] MEDS ORDERED: BETH5TAB2 PO (16:28)
[2024-10-01] MEDS ORDERED: BENZ1TAB7 PO (16:28)
[2024-10-01] MEDS ORDERED: APIX5TAB PO (16:28)
[2024-10-01] MEDS ORDERED: MULT-594 PO (16:28)
[2024-10-01] MEDS ORDERED: SULF1TAB47 PO (16:28)
[2024-10-01 16:43] LABS: APPEARANCE,URINE CLEAR (CLEAR); BILIRUBIN,URINE NEGATIVE (NEGATIVE); BLOOD, URINE NEGATIVE Ery/uL (NEGATIVE); COLOR,URINE YELLOW (YELLOW); KETONES,URINE NEGATIVE (NEGATIVE); LEUKOCYTE ESTERASE ,URINE TRACE (NEGATIVE); NITRITE, URINE NEGATIVE (NEGATIVE); PROTEIN,URINE NEGATIVE (NEGATIVE); UGLUCOSE NEGATIVE (NEGATIVE); UROBILINOGEN,URINE 0.2 EU/dL (0.2)
[2024-10-01 16:57] LABS: ADD URINE CULTURE NO; AMPHETAMINE, URINE NEGATIVE (NEGATIVE); BACTERIA,URINE Rare /HPF (None Seen); BARBITURATE, URINE NEGATIVE (NEGATIVE); BENZODIAZEPINE, URINE POSITIVE (NEGATIVE); CANNABINOID, URINE NEGATIVE (NEGATIVE); COCCAINE, URINE NEGATIVE (NEGATIVE); OPIATE, URINE NEGATIVE (NEGATIVE); PHENCYCLIDINE SCREEN,URINE NEGATIVE (NEGATIVE); RBC,URINE 0-2 /HPF (0-2)
[2024-10-01 16:58] LABS: MUCUS,URINE Few /LPF (None Seen)
[2024-10-01 18:17] VITALS: BP 118/85; TEMP 98.1; O2SAT 95
[2024-10-01] MEDS ORDERED: MAGNESIUM HYDROXIDE 30 ML UDC PO PRN (18:30)
[2024-10-01] MEDS: BLOOD SUGAR DIAGNOSTIC 1 EACH STRIP IN ONE (18:30)
[2024-10-01] MEDS ORDERED: QUETIAPINE FUMARATE 25 MG TABLET PO PRN (18:30)
[2024-10-01] MEDS ORDERED: MAG HYDROX/AL HYDROX/SIMETH 30 ML UDC PO PRN (18:30)
[2024-10-01 20:00] VITALS: BP 98/69; TEMP 97.7; O2SAT 99
[2024-10-01] MEDS: TRAMADOL HCL 50 MG TABLET PO ONE (22:22)
[2024-10-02] MEDS ORDERED: BISACODYL (5 MG) 5 MG TABLET.DR PO PRN (00:30)
[2024-10-02] MEDS ORDERED: MAGNESIUM HYDROXIDE 30 ML UDC PO PRN (00:30)
[2024-10-02 07:35] LABS: BILIRUBIN,TOTAL 0.6 mg/dL (0.2-1.0); CALCIUM, SERUM 9.9 mg/dL (8.5-10.1); POTASSIUM 3.6 mmol/L (3.5-5.1)
[2024-10-02 07:37] LABS: CHOLESTEROL 113 mg/dL (<200); HDL CHOLESTEROL 63 mg/dL (40-60); LDL 40 mg/dL (0-99); TRIGLYCERIDES 61 mg/dL (30-150)
[2024-10-02] MEDS: LEVOTHYROXINE SODIUM 137 MCG TABLET PO SCH (07:54)
[2024-10-02 08:00] VITALS: BP 127/83; TEMP 97.6; O2SAT 99
[2024-10-02] MEDS: BETHANECHOL CHLORIDE (25 MG) 25 MG TABLET PO SCH (08:31)
[2024-10-02] MEDS: MULTIVIT W/MINERALS 1 TAB TABLET PO SCH (08:31)
[2024-10-02] MEDS: CHOLECALCIFEROL 1,000 UNIT TABLET (VIT D3) PO SCH (08:31)
[2024-10-02] MEDS: CEPHALEXIN MONOHYDRATE 500 MG CAPSULE PO SCH (08:31)
[2024-10-02] MEDS: PROPRANOLOL HCL 10 MG TABLET PO SCH (08:32)
[2024-10-02] MEDS: APIXABAN 5 MG TABLET PO SCH (08:33)
[2024-10-02] MEDS ORDERED: VALPROIC ACID 250 MG/5 ML UDC PO SCH (09:00)
[2024-10-02] MEDS: GABAPENTIN 100 MG CAPSULE PO SCH (09:00)
[2024-10-02] MEDS: OLANZAPINE 10 MG VIAL IM ONE (13:37)
[2024-10-02 16:00] VITALS: BP 101/82; TEMP 98; O2SAT 98
[2024-10-02] MEDS: risperiDONE 1 MG TABLET PO SCH (17:40)
[2024-10-02 19:05] LABS: CREATININE 1.1 mg/dL (0.6-1.3)
[2024-10-02 20:10] VITALS: BP 90/60; TEMP 97.9; O2SAT 98
[2024-10-02] MEDS: SIMVASTATIN 20 MG TABLET PO SCH (21:12)
[2024-10-02] MEDS: TAMSULOSIN 0.4 MG CAP.SR.24H PO SCH (21:12)
[2024-10-02] MEDS: FAMOTIDINE (20 MG) 20 MG TABLET PO SCH (21:12)
[2024-10-02] MEDS: VALPROIC ACID 250 MG/5 ML UDC PO SCH (21:12)
[2024-10-03 07:30] VITALS: BP 127/78; TEMP 96.9; O2SAT 97
[2024-10-03] MEDS: SENNOSIDES 8.6 MG TABLET PO PRN (09:18)
[2024-10-03 16:00] VITALS: BP 97/80; TEMP 98.2; O2SAT 97
[2024-10-03 20:00] VITALS: BP 100/70; TEMP 98.1; O2SAT 98
[2024-10-03 20:32] VITALS: BP 100/70; TEMP 98.1; O2SAT 98
[2024-10-04 08:39] VITALS: BP 100/84; TEMP 97.7; O2SAT 100
[2024-10-04] MEDS: OLANZAPINE 10 MG VIAL IM ONE (09:44)
[2024-10-04 16:00] VITALS: BP 94/82; TEMP 97.8; O2SAT 97
[2024-10-04 20:40] VITALS: BP 98/66; TEMP 99.3; O2SAT 99
[2024-10-05 08:00] VITALS: BP 100/74; TEMP 98.1; O2SAT 98
[2024-10-05 16:00] VITALS: BP 105/75; TEMP 98.6; O2SAT 98
[2024-10-05 20:00] VITALS: BP 109/73; TEMP 98.6; O2SAT 98
[2024-10-05] MEDS: Z GUARD REMEDY 4 OZ OINT TP SCH (21:08)
[2024-10-06 08:00] VITALS: BP 99/75; TEMP 97.8; O2SAT 96
[2024-10-06 16:15] VITALS: BP 97/74; TEMP 98.1; O2SAT 98
[2024-10-06 20:00] VITALS: BP 102/83; TEMP 98.2; O2SAT 95
[2024-10-06 21:25] VITALS: BP 102/83; TEMP 98.2; O2SAT 98
[2024-10-07] MEDS: ZOLPIDEM TARTRATE 5 MG TABLET PO PRN (02:44)
[2024-10-07 07:34] LABS: BASOPHILS % (AUTO) 0.4 % (0.0-2.0); EOSINOPHILS # (AUTO) 0.3 K/uL (0.0-0.7); EOSINOPHILS % (AUTO) 5.1 % (0.0-6.0); HEMATOCRIT 35 % (33-45); HEMOGLOBIN 11.4 g/dL (11.5-14.8); LYMPHOCYTES % (AUTO) 30.5 % (20.0-44.0); MEAN CORPUSCULAR HEMOGLOBIN 30 PG (26.0-33.0); MEAN CORPUSCULAR HGB CONC 33 g/dl (31.0-36.0); MEAN CORPUSCULAR VOLUME 92 fL (82-100); MONOCYTES # (AUTO) 0.7 K/uL (0.1-1.30); MONOCYTES % (AUTO) 11.2 % (2.0-12.0); NEUTROPHILS # (AUTO) 3.4 K/uL (1.8-8.9); NEUTROPHILS % (AUTO) 52.8 % (43.0-81.0); PLATELET COUNT (AUTO) 256 K/uL (150-450); RED BLOOD CELL COUNT(AUTO) 3.79 MIL/uL (4.0-5.2); RED CELL DISTRIBUTION WIDTH 13.9 % (11.5-15.0); WHITE BLOOD COUNT (AUTO) 6.4 K/uL (4.3-11.0)
[2024-10-07 08:00] VITALS: BP 115/81; TEMP 98.2; O2SAT 99
[2024-10-07 08:50] LABS: CALCIUM, SERUM 9.5 mg/dL (8.5-10.1); MAGNESIUM 2.6 mg/dL (1.8-2.4); PHOSPHORUS 4.2 mg/dL (2.5-4.9); POTASSIUM 3.8 mmol/L (3.5-5.1)
[2024-10-07 16:10] VITALS: BP 100/67; TEMP 98.6; O2SAT 97
[2024-10-07] MEDS: risperiDONE 1 MG TABLET PO SCH (17:27)
[2024-10-07 20:04] VITALS: BP 97/73; TEMP 97.5; O2SAT 98
[2024-10-08 08:00] VITALS: BP 90/73; TEMP 97.5; O2SAT 98
[2024-10-08 16:00] VITALS: BP 110/71; TEMP 97.6; O2SAT 97
[2024-10-08 20:36] VITALS: BP 96/70; TEMP 97.5; O2SAT 99
[2024-10-09 05:57] VITALS: BP 96/70; TEMP 97.5; O2SAT 99
[2024-10-09 08:00] VITALS: BP 110/97; TEMP 98; O2SAT 94
[2024-10-09] MEDS: VALPROIC ACID 250 MG/5 ML UDC PO SCH (14:15)
[2024-10-09 16:00] VITALS: BP 119/69; TEMP 98.6; O2SAT 96
[2024-10-09] MEDS: risperiDONE 1 MG TABLET PO SCH (16:48)
[2024-10-09 20:09] VITALS: BP 94/65; TEMP 98.2; O2SAT 97
[2024-10-10 08:00] VITALS: BP 99/79; TEMP 97.9; O2SAT 98
[2024-10-10 16:00] VITALS: BP 104/79; TEMP 97.7; O2SAT 96
[2024-10-10 20:32] VITALS: BP 115/68; TEMP 97.8; O2SAT 98
[2024-10-11 08:00] VITALS: BP 115/91; TEMP 98.6; O2SAT 98
[2024-10-11] MEDS ORDERED: NOREPINEPHRINE 8 MG in IV D5W 242 ML IV PRN (14:00)
[2024-10-11 14:03] LABS: ABG BASE EXCESS -1.8 mmol/L (-2.0-3.0); ABG OXYGEN SATURATION 86.6 % (94.0-98.0); ABG PCO2 43.6 mmHg (32.0-45.0); ABG PH 7.354 (7.350-7.450); ABG PO2 56.4 mmHg (83.0-108.0); ABG TOTAL HEMOGLOBIN 12.5 G/dL (12.0-16.0); MetHb 0.2 % (0.0-1.5); O2Hb 86.4 % (94.0-97.0); SITE, ABG RIGHT RADIAL
[2024-10-11 14:23] VITALS: BP 72/45; TEMP 96.8; O2SAT 82
[2024-10-11 15:15] LABS: BASOPHILS % (AUTO) 0.1 % (0.0-2.0); EOSINOPHILS # (AUTO) 0.1 K/uL (0.0-0.7); EOSINOPHILS % (AUTO) 0.7 % (0.0-6.0); HEMATOCRIT 39 % (33-45); HEMOGLOBIN 12.9 g/dL (11.5-14.8); LYMPHOCYTES % (AUTO) 10.8 % (20.0-44.0); MEAN CORPUSCULAR HEMOGLOBIN 30 PG (26.0-33.0); MEAN CORPUSCULAR HGB CONC 33 g/dl (31.0-36.0); MEAN CORPUSCULAR VOLUME 90 fL (82-100); MONOCYTES # (AUTO) 0.3 K/uL (0.1-1.30); MONOCYTES % (AUTO) 2.8 % (2.0-12.0); NEUTROPHILS # (AUTO) 7.7 K/uL (1.8-8.9); NEUTROPHILS % (AUTO) 85.6 % (43.0-81.0); PLATELET COUNT (AUTO) 380 K/uL (150-450); RED BLOOD CELL COUNT(AUTO) 4.32 MIL/uL (4.0-5.2); RED CELL DISTRIBUTION WIDTH 14.2 % (11.5-15.0)
[2024-10-11 15:44] LABS: ALBUMIN 3.3 g/dL (3.4-5.0); BILIRUBIN,DIRECT 0.2 mg/dL (0.0-0.2); BILIRUBIN,TOTAL 0.4 mg/dL (0.2-1.0); CALCIUM, SERUM 9.8 mg/dL (8.5-10.1); CREATININE 1.1 mg/dL (0.6-1.3); POTASSIUM 3.2 mmol/L (3.5-5.1); TOTAL PROTEIN, SERUM 7.3 g/dL (6.4-8.2)
== END 2024-10-11 13:57 | disposition short-term general hospital (02) | DRG 885 ==
LOC: ER 15:00 → GPS 17:33
PROVIDERS: ADMIT Psychiatry & Neurology Psychiatry; ATTEND Nurse Practitioner Family
DX: F20.0 Paranoid schizophrenia (principal); G93.41 Metabolic encephalopathy; F01.511 Vascular dementia, unspecified severity, with agitation; F01.52 Vascular dementia, unspecified severity, with psychotic disturbance; N39.0 Urinary tract infection, site not specified; E78.5 Hyperlipidemia, unspecified; E03.9 Hypothyroidism, unspecified; K21.9 Gastro-esophageal reflux disease without esophagitis; B96.20 Unspecified Escherichia coli [E. coli] as the cause of diseases classified elsewhere; E88.09 Other disorders of plasma-protein metabolism, not elsewhere classified; I10 Essential (primary) hypertension; Z88.6 Allergy status to analgesic agent; I25.10 Atherosclerotic heart disease of native coronary artery without angina pectoris; M45.6 Ankylosing spondylitis lumbar region; G89.29 Other chronic pain; R03.1 Nonspecific low blood-pressure reading; R73.9 Hyperglycemia, unspecified; R09.89 Other specified symptoms and signs involving the circulatory and respiratory systems; Z88.0 Allergy status to penicillin; Z91.410 Personal history of adult physical and sexual abuse; Z88.8 Allergy status to other drugs, medicaments and biological substances; Z79.899 Other long term (current) drug therapy; Z79.82 Long term (current) use of aspirin
CPT/HCPCS: 36415; 80048-TC; 80053-TC; 80061-TC; 80076-TC; 80164-TC; 81001; 82565-TC; 82962-TC; 83735-TC; 84100-TC; 84443-TC; 85025-TC; 87081-TC; 97110-TC; 97112-TC; 97116-TC; 97530-TC; A4223; G0480; J3490; J7030

== ENCOUNTER 2024-10-11 14:19 | Inpatient (IN) | payer MEDICARE, OTHER ==
[2024-10-11] VITALS (37 sets, daily range): BP systolic 61–129; BP diastolic 34–108; TEMP 96; O2SAT 95–100
[~2024-10-11] VITALS: Ht 160 cm; Wt 68.9 kg
[~2024-10-11 14:19] MED LIST changes: -ALBU8.5H8 INH; +APIX5TAB PO; -ASCO-317 PO; -ASPI-1169 PO; +BENZ1TAB7 PO; +BETH5TAB2 PO; -BISA10SU11 RC; +BISA5TAB10 PO; +CHLO25AM IM; +CHOL100062 PO; -CHOL400T11 PO; -CRAN400C PO; -DOCU100C36 PO; +ESCI5TAB PO; -FAMO20TA8 PO; +FAMO20TA80 PO; +GABA-532 PO; +GUAI400T11 PO; +HALO5TAB8 PO; -LEVO112T5 PO; +LEVO137T24 PO; +LIDO30CR47 TP; +LORA-259 PO; +MULT-594 PO; -NA P133E RC; -ONDA4TAB5 PO; -POVI3780 TP; -QUET25TA PO; -QUET50TA PO; +SENN8.6T19 PO; +SULF1TAB47 PO; +TAMS-12 PO; -TRAM50TA2 PO; +VALP250S4 PO
[2024-10-11] MEDS ORDERED: ACETAMINOPHEN 325 MG TABLET PO PRN (15:00)
[2024-10-11] MEDS ORDERED: ONDANSETRON HCL/PF 4 MG/2 ML VIAL IVP PRN (15:00)
[2024-10-11] MEDS: NOREPINEPHRINE 8 MG in IV D5W 242 ML IV PRN (15:09)
[2024-10-11] MEDS: IV NS 0.9% 1,000 ML IV PRN (15:10)
[2024-10-11 15:37] LABS: LACTIC ACID 2.1 mmol/L (0.4-2.0)
[2024-10-11 15:52] LABS: ABG BASE EXCESS -2.6 mmol/L (-2.0-3.0); ABG OXYGEN SATURATION 99.2 % (94.0-98.0); ABG PCO2 33.9 mmHg (32.0-45.0); ABG PH 7.414 (7.350-7.450); ABG TOTAL HEMOGLOBIN 13.9 G/dL (12.0-16.0); COHb 0.3 % (0.5-1.5); MetHb 0.3 % (0.0-1.5); O2Hb 98.6 % (94.0-97.0); PEEP,BG 5 cm H2O; SITE, ABG LEFT RADIAL; VT, ABG 475 mL
[2024-10-11] MEDS: PHENYLEPHRINE 50 MG in IV NS 0.9% 245 ML IV PRN (16:19)
[2024-10-11] MEDS: CEFEPIME 2 GM in IV D5W 100 ML IV SCH (16:51)
[2024-10-11] MEDS ORDERED: NOREPINEPHRINE 32 MG in IV NS 0.9% 218 ML IV PRN (17:30)
[2024-10-11] MEDS ORDERED: VASOPRESSIN INJ 40 UNIT in IV NS 0.9% 38 ML IV PRN (18:30)
[2024-10-11] MEDS ORDERED: DC PROPOFOL WHEN EXTUBATED XX PRN (20:21)
[2024-10-11] MEDS: ENOXAPARIN SODIUM 40 MG/0.4 ML DISP.SYRIN SQ SCH (20:39)
[2024-10-11] MEDS: LORAZEPAM INJ 2 MG/ML VIAL IV ONE (21:00)
[2024-10-11] MEDS ORDERED: ENOXAPARIN SODIUM 40 MG/0.4 ML DISP.SYRIN SQ SCH (21:00)
[2024-10-12] VITALS (25 sets, daily range): BP systolic 54–110; BP diastolic 38–62; TEMP 97.7–99.3; O2SAT 88–99
[2024-10-12] MEDS ORDERED: ROCURONIUM BROMIDE 50 MG/5 ML IV ONE (07:22)
[2024-10-12] MEDS: CEFEPIME 2 GM in IV D5W 100 ML IV SCH (10:20)
[2024-10-12] MEDS: VANCOMYCIN HCL 1.25 GM in IV D5W 250 ML IV ONE (10:22)
[2024-10-12] MEDS: IV NS 0.9% 500 ML IV ONE (10:49)
[2024-10-12] MEDS: IV NS 0.9% 1,000 ML BAG IV PRN (10:50)
[2024-10-12 11:40] LABS: BASOPHILS % (AUTO) 0.1 % (0.0-2.0); HEMATOCRIT 36 % (33-45); HEMOGLOBIN 11.9 g/dL (11.5-14.8); LYMPHOCYTES # (AUTO) 0.7 K/uL (0.8-4.8); LYMPHOCYTES % (AUTO) 5.1 % (20.0-44.0); MEAN CORPUSCULAR HEMOGLOBIN 30 PG (26.0-33.0); MEAN CORPUSCULAR HGB CONC 33 g/dl (31.0-36.0); MEAN CORPUSCULAR VOLUME 91 fL (82-100); MONOCYTES # (AUTO) 1.1 K/uL (0.1-1.30); NEUTROPHILS # (AUTO) 11.4 K/uL (1.8-8.9); NEUTROPHILS % (AUTO) 86.8 % (43.0-81.0); PLATELET COUNT (AUTO) 274 K/uL (150-450); RED BLOOD CELL COUNT(AUTO) 4.01 MIL/uL (4.0-5.2); WHITE BLOOD COUNT (AUTO) 13.1 K/uL (4.3-11.0)
[2024-10-12 11:49] LABS: CALCIUM, SERUM 8.4 mg/dL (8.5-10.1); CREATININE 1.5 mg/dL (0.6-1.3); POTASSIUM 4.1 mmol/L (3.5-5.1)
[2024-10-12 11:54] LABS: BILIRUBIN,TOTAL 0.5 mg/dL (0.2-1.0); TOTAL PROTEIN, SERUM 5.3 g/dL (6.4-8.2)
[2024-10-12 12:18] LABS: THYROID STIMULATING HORMONE 1.26 uIU/mL (0.358-3.74)
[2024-10-12] MEDS: IV NS 0.9% 1,000 ML IV PRN (17:20)
[2024-10-12 18:46] LABS: APPEARANCE,URINE CLEAR (CLEAR); BILIRUBIN,URINE NEGATIVE (NEGATIVE); BLOOD, URINE NEGATIVE Ery/uL (NEGATIVE); COLOR,URINE DARK YELLOW (YELLOW); KETONES,URINE TRACE mg/dL (NEGATIVE); LEUKOCYTE ESTERASE ,URINE NEGATIVE (NEGATIVE); NITRITE, URINE NEGATIVE (NEGATIVE); PROTEIN,URINE TRACE mg/dl (NEGATIVE); UGLUCOSE NEGATIVE (NEGATIVE); UROBILINOGEN,URINE 0.2 EU/dL (0.2)
[2024-10-12 19:15] LABS: ADD URINE CULTURE NO; BACTERIA,URINE Rare /HPF (None Seen); SQUAMOUS EPITHELIAL CELL,UR Few /HPF (None Seen); WBC,URINE 0-2 /HPF (0-3)
[2024-10-13] VITALS (24 sets, daily range): BP systolic 63–162; BP diastolic 19–116; TEMP 97.9–99.8; O2SAT 94–100
[2024-10-13 05:18] LABS: BASOPHILS % (AUTO) 0.1 % (0.0-2.0); HEMATOCRIT 31 % (33-45); HEMOGLOBIN 10.4 g/dL (11.5-14.8); LYMPHOCYTES # (AUTO) 0.7 K/uL (0.8-4.8); LYMPHOCYTES % (AUTO) 5.5 % (20.0-44.0); MEAN CORPUSCULAR HEMOGLOBIN 30 PG (26.0-33.0); MEAN CORPUSCULAR HGB CONC 33 g/dl (31.0-36.0); MEAN CORPUSCULAR VOLUME 91 fL (82-100); MONOCYTES # (AUTO) 1.6 K/uL (0.1-1.30); MONOCYTES % (AUTO) 12.4 % (2.0-12.0); NEUTROPHILS # (AUTO) 10.4 K/uL (1.8-8.9); PLATELET COUNT (AUTO) 251 K/uL (150-450); RED BLOOD CELL COUNT(AUTO) 3.46 MIL/uL (4.0-5.2); RED CELL DISTRIBUTION WIDTH 14.5 % (11.5-15.0); WHITE BLOOD COUNT (AUTO) 12.7 K/uL (4.3-11.0)
[2024-10-13 05:39] LABS: MAGNESIUM 2.3 mg/dL (1.8-2.4); PHOSPHORUS 3.8 mg/dL (2.5-4.9)
[2024-10-13] MEDS ORDERED: VANCOMYCIN 1 GM in IV D5W 250ml IV SCH (10:00)
[2024-10-13] MEDS: VANCOMYCIN 750 MG in IV D5W 250 ML IV SCH (11:08)
[2024-10-13 11:12] LABS: CALCIUM, SERUM 8.3 mg/dL (8.5-10.1); CREATININE 1.2 mg/dL (0.6-1.3); POTASSIUM 3.8 mmol/L (3.5-5.1)
[2024-10-14] VITALS (20 sets, daily range): BP systolic 103–157; BP diastolic 65–118; TEMP 97.7–98.4; O2SAT 16–100
[2024-10-14 04:07] LABS: BASOPHILS % (AUTO) 0.1 % (0.0-2.0); EOSINOPHILS % (AUTO) 0.2 % (0.0-6.0); HEMATOCRIT 28 % (33-45); HEMOGLOBIN 9.2 g/dL (11.5-14.8); LYMPHOCYTES # (AUTO) 0.8 K/uL (0.8-4.8); LYMPHOCYTES % (AUTO) 8.4 % (20.0-44.0); MEAN CORPUSCULAR HEMOGLOBIN 30 PG (26.0-33.0); MEAN CORPUSCULAR HGB CONC 33 g/dl (31.0-36.0); MEAN CORPUSCULAR VOLUME 89 fL (82-100); MONOCYTES # (AUTO) 0.7 K/uL (0.1-1.30); MONOCYTES % (AUTO) 7.7 % (2.0-12.0); NEUTROPHILS # (AUTO) 7.8 K/uL (1.8-8.9); NEUTROPHILS % (AUTO) 83.6 % (43.0-81.0); PLATELET COUNT (AUTO) 223 K/uL (150-450); RED BLOOD CELL COUNT(AUTO) 3.09 MIL/uL (4.0-5.2); RED CELL DISTRIBUTION WIDTH 14.4 % (11.5-15.0); WHITE BLOOD COUNT (AUTO) 9.3 K/uL (4.3-11.0)
[2024-10-14 04:27] LABS: MAGNESIUM 2.3 mg/dL (1.8-2.4)
[2024-10-14] MEDS: VANCOMYCIN 1 GM in IV D5W 250ml IV SCH (10:36)
[2024-10-14 10:47] LABS: CALCIUM, SERUM 8.7 mg/dL (8.5-10.1); CREATININE 0.9 mg/dL (0.6-1.3); POTASSIUM 3.5 mmol/L (3.5-5.1)
[2024-10-14] MEDS: IV 1/2NS 1000 ML 1,000 ML IV PRN (11:16)
[2024-10-14] MEDS: Sodium Phosphate 15 MMOL in IV NS 0.9% 245 ML IV SCH (15:34)
[2024-10-14] MEDS ORDERED: RISP1TAB97 PO (15:44)
[2024-10-14] MEDS ORDERED: CHLO50TA24 PO (15:44)
[2024-10-14] MEDS ORDERED: TRAZ-252 PO (15:44)
[2024-10-14] MEDS ORDERED: RISP4TAB70 PO (15:44)
[2024-10-14] MEDS ORDERED: GUAI100S9 PO (15:44)
[2024-10-14] MEDS ORDERED: TRAM50TA2 PO (15:46)
[2024-10-14] MEDS ORDERED: VANCOMYCIN 750 MG in IV D5W 250 ML IV SCH (22:00)
[2024-10-15 07:09] LABS: MAGNESIUM 1.8 mg/dL (1.8-2.4); PHOSPHORUS 1.7 mg/dL (2.5-4.9)
[2024-10-15 07:30] VITALS: BP 144/93; TEMP 97.9; O2SAT 99
[2024-10-15 09:23] LABS: CALCIUM, SERUM 8.6 mg/dL (8.5-10.1); CREATININE 0.9 mg/dL (0.6-1.3); POTASSIUM 2.9 mmol/L (3.5-5.1)
[2024-10-15] MEDS: BLOOD SUGAR DIAGNOSTIC 1 EACH STRIP IN SCH (12:07)
[2024-10-15] MEDS: POTASSIUM CL. PREMIX PERIPHER. 50 ML IV SCH (12:37)
[2024-10-15 13:02] LABS: FOLIC ACID 12.9 ng/mL (>3.0)
[2024-10-15 16:00] VITALS: BP 158/133; TEMP 99; O2SAT 100
[2024-10-15] MEDS: DEXTROSE 50%-WATER 50 ML DISP.SYRIN IVP PRN (16:29)
[2024-10-15] MEDS: DIVALPROEX SODIUM 125 MG TABLET.DR PO SCH (17:00)
[2024-10-15] MEDS: POTASSIUM PHOSPHATE MM 7.5 MMOL in IV NS 0.9% 100 ML IV SCH (18:27)
[2024-10-15 20:00] VITALS: BP 118/85; TEMP 98.2; O2SAT 97
[2024-10-15 20:45] VITALS: BP 118/85; TEMP 98.2; O2SAT 97
[2024-10-15] MEDS: JEVITY 1.2 CAL 1,000 ML BOTTLE GT PRN (22:05)
[2024-10-16 07:09] LABS: BASOPHILS % (AUTO) 0.3 % (0.0-2.0); EOSINOPHILS # (AUTO) 0.2 K/uL (0.0-0.7); EOSINOPHILS % (AUTO) 2.1 % (0.0-6.0); HEMATOCRIT 29 % (33-45); HEMOGLOBIN 10.1 g/dL (11.5-14.8); LYMPHOCYTES # (AUTO) 1.5 K/uL (0.8-4.8); LYMPHOCYTES % (AUTO) 15.3 % (20.0-44.0); MEAN CORPUSCULAR HEMOGLOBIN 31 PG (26.0-33.0); MEAN CORPUSCULAR HGB CONC 35 g/dl (31.0-36.0); MEAN CORPUSCULAR VOLUME 88 fL (82-100); MONOCYTES # (AUTO) 1.1 K/uL (0.1-1.30); MONOCYTES % (AUTO) 11.1 % (2.0-12.0); NEUTROPHILS # (AUTO) 6.9 K/uL (1.8-8.9); NEUTROPHILS % (AUTO) 71.2 % (43.0-81.0); PLATELET COUNT (AUTO) 222 K/uL (150-450); RED CELL DISTRIBUTION WIDTH 14.5 % (11.5-15.0); WHITE BLOOD COUNT (AUTO) 9.7 K/uL (4.3-11.0)
[2024-10-16 07:42] LABS: MAGNESIUM 1.9 mg/dL (1.8-2.4); PHOSPHORUS 1.9 mg/dL (2.5-4.9)
[2024-10-16 08:00] VITALS: BP 151/98; TEMP 97.7; O2SAT 99
[2024-10-16] MEDS: IV D5W 1,000 ML IV SCH (08:28)
[2024-10-16] MEDS: FREE WATER VIA TUBE FEEDING GT SCH (09:01)
[2024-10-16 09:59] LABS: LYMPHOCYTES % (MANUAL) 17 % (16-48); MONOCYTES % (MANUAL) 9 % (0-11.0); NEUTROPHILS % (MANUAL) 74 (42-76); PLATELET ESTIMATE ADEQUATE
[2024-10-16 11:03] LABS: CALCIUM, SERUM 8.4 mg/dL (8.5-10.1); CREATININE 0.8 mg/dL (0.6-1.3); POTASSIUM 3.1 mmol/L (3.5-5.1)
[2024-10-16] MEDS: POTASSIUM CHLORIDE 20 MEQ POWDER PACKET GT ONE (12:32)
[2024-10-16] MEDS: NEUTRA PHOS 1 POWD.PACKET GT ONE (16:00)
[2024-10-16] MEDS ORDERED: ONDANSETRON HCL/PF 4 MG/2 ML VIAL IV PRN (16:30)
[2024-10-16 16:45] VITALS: BP 128/85; TEMP 98.4; O2SAT 99
[2024-10-16 20:00] VITALS: BP 156/100; TEMP 97.5; O2SAT 96
[2024-10-17 06:38] LABS: BASOPHILS # (AUTO) 0.1 K/uL (0.0-0.2); BASOPHILS % (AUTO) 0.5 % (0.0-2.0); EOSINOPHILS # (AUTO) 0.4 K/uL (0.0-0.7); HEMATOCRIT 29 % (33-45); HEMOGLOBIN 9.4 g/dL (11.5-14.8); LYMPHOCYTES # (AUTO) 2.1 K/uL (0.8-4.8); LYMPHOCYTES % (AUTO) 21.5 % (20.0-44.0); MEAN CORPUSCULAR HEMOGLOBIN 29 PG (26.0-33.0); MEAN CORPUSCULAR HGB CONC 33 g/dl (31.0-36.0); MEAN CORPUSCULAR VOLUME 90 fL (82-100); MONOCYTES # (AUTO) 1.2 K/uL (0.1-1.30); MONOCYTES % (AUTO) 12.6 % (2.0-12.0); NEUTROPHILS # (AUTO) 5.9 K/uL (1.8-8.9); NEUTROPHILS % (AUTO) 61.4 % (43.0-81.0); PLATELET COUNT (AUTO) 206 K/uL (150-450); RED BLOOD CELL COUNT(AUTO) 3.22 MIL/uL (4.0-5.2); RED CELL DISTRIBUTION WIDTH 14.8 % (11.5-15.0); WHITE BLOOD COUNT (AUTO) 9.7 K/uL (4.3-11.0)
[2024-10-17 06:55] LABS: PHOSPHORUS 3.3 mg/dL (2.5-4.9)
[2024-10-17 07:24] LABS: CREATININE 0.8 mg/dL (0.6-1.3); POTASSIUM 3.8 mmol/L (3.5-5.1)
[2024-10-17 07:28] LABS: CALCIUM, SERUM 8.8 mg/dL (8.5-10.1)
[2024-10-17 07:30] VITALS: BP 104/83; TEMP 97.7; O2SAT 99
[2024-10-17 08:17] LABS: EOSINOPHILS % (MANUAL) 4 % (0-4); LYMPHOCYTES % (MANUAL) 28 % (16-48); MONOCYTES % (MANUAL) 11 % (0-11.0); NEUTROPHILS % (MANUAL) 57 (42-76); PLATELET ESTIMATE ADEQUATE
[2024-10-17 08:21] LABS: ANISOCYTOSIS 1+
[2024-10-17 15:00] VITALS: BP 97/71; TEMP 97.3; O2SAT 98
[2024-10-17 17:24] LABS: CALCIUM, SERUM 8.5 mg/dL (8.5-10.1); CREATININE 0.7 mg/dL (0.6-1.3); POTASSIUM 3.7 mmol/L (3.5-5.1)
[2024-10-17 20:00] VITALS: BP 104/65; TEMP 98.8; O2SAT 97
[2024-10-18] MEDS: JEVITY 1.2 CAL 1,000 ML BOTTLE GT SCH (01:28)
[2024-10-18 04:09] LABS: VITAMIN B1 THIAMINE,WB 192.5 nmol/L (66.5-200.0)
[2024-10-18] MEDS: IV D5W 1,000 ML IV PRN (05:19)
[2024-10-18 06:37] LABS: CALCIUM, SERUM 8.8 mg/dL (8.5-10.1); CREATININE 0.7 mg/dL (0.6-1.3); MAGNESIUM 2.1 mg/dL (1.8-2.4); POTASSIUM 3.4 mmol/L (3.5-5.1)
[2024-10-18 06:53] LABS: BASOPHILS % (AUTO) 0.3 % (0.0-2.0); EOSINOPHILS # (AUTO) 0.3 K/uL (0.0-0.7); EOSINOPHILS % (AUTO) 3.7 % (0.0-6.0); HEMATOCRIT 29 % (33-45); HEMOGLOBIN 9.1 g/dL (11.5-14.8); LYMPHOCYTES # (AUTO) 1.8 K/uL (0.8-4.8); LYMPHOCYTES % (AUTO) 21.6 % (20.0-44.0); MEAN CORPUSCULAR HEMOGLOBIN 30 PG (26.0-33.0); MEAN CORPUSCULAR HGB CONC 32 g/dl (31.0-36.0); MEAN CORPUSCULAR VOLUME 93 fL (82-100); MONOCYTES # (AUTO) 1.3 K/uL (0.1-1.30); MONOCYTES % (AUTO) 15.4 % (2.0-12.0); PLATELET COUNT (AUTO) 182 K/uL (150-450); RED BLOOD CELL COUNT(AUTO) 3.09 MIL/uL (4.0-5.2); RED CELL DISTRIBUTION WIDTH 15.7 % (11.5-15.0); WHITE BLOOD COUNT (AUTO) 8.5 K/uL (4.3-11.0)
[2024-10-18 07:00] VITALS: BP 110/93; TEMP 97.7; O2SAT 98
[2024-10-18 08:57] LABS: EOSINOPHILS % (MANUAL) 2 % (0-4); LYMPHOCYTES % (MANUAL) 26 % (16-48); MONOCYTES % (MANUAL) 10 % (0-11.0); NEUTROPHILS % (MANUAL) 62 (42-76); PLATELET ESTIMATE ADEQUATE
[2024-10-18 08:59] LABS: ANISOCYTOSIS 1+
[2024-10-18] MEDS ORDERED: POTASSIUM CHLORIDE 20 MEQ POWDER PACKET NG SCH (10:00)
[2024-10-18] MEDS: POTASSIUM CHLORIDE 20 MEQ POWDER PACKET NG SCH (11:07)
[2024-10-18 16:00] VITALS: BP 93/61; TEMP 97.7; O2SAT 100
[2024-10-18 20:38] VITALS: BP 107/73; TEMP 98.1; O2SAT 93
[2024-10-19 07:57] LABS: BASOPHILS % (AUTO) 0.3 % (0.0-2.0); EOSINOPHILS # (AUTO) 0.3 K/uL (0.0-0.7); EOSINOPHILS % (AUTO) 2.3 % (0.0-6.0); HEMATOCRIT 30 % (33-45); HEMOGLOBIN 9.8 g/dL (11.5-14.8); LYMPHOCYTES % (AUTO) 17.4 % (20.0-44.0); MEAN CORPUSCULAR HEMOGLOBIN 29 PG (26.0-33.0); MEAN CORPUSCULAR HGB CONC 33 g/dl (31.0-36.0); MEAN CORPUSCULAR VOLUME 89 fL (82-100); MONOCYTES # (AUTO) 1.5 K/uL (0.1-1.30); MONOCYTES % (AUTO) 12.5 % (2.0-12.0); NEUTROPHILS # (AUTO) 7.8 K/uL (1.8-8.9); NEUTROPHILS % (AUTO) 67.5 % (43.0-81.0); PLATELET COUNT (AUTO) 229 K/uL (150-450); RED BLOOD CELL COUNT(AUTO) 3.36 MIL/uL (4.0-5.2); RED CELL DISTRIBUTION WIDTH 14.9 % (11.5-15.0); WHITE BLOOD COUNT (AUTO) 11.6 K/uL (4.3-11.0)
[2024-10-19 08:00] VITALS: BP 156/71; TEMP 99.5; O2SAT 99
[2024-10-19 08:16] LABS: CALCIUM, SERUM 9.3 mg/dL (8.5-10.1); CREATININE 0.7 mg/dL (0.6-1.3); MAGNESIUM 2.2 mg/dL (1.8-2.4); PHOSPHORUS 2.7 mg/dL (2.5-4.9); POTASSIUM 4.1 mmol/L (3.5-5.1)
[2024-10-19] MEDS: VALPROIC ACID 250 MG/5 ML UDC NG SCH (13:24)
[2024-10-19 16:00] VITALS: BP 150/100; TEMP 99; O2SAT 98
[2024-10-19 20:00] VITALS: BP 116/72; TEMP 98.6; O2SAT 97
[2024-10-20 06:26] LABS: BASOPHILS % (AUTO) 0.3 % (0.0-2.0); EOSINOPHILS # (AUTO) 0.2 K/uL (0.0-0.7); EOSINOPHILS % (AUTO) 1.3 % (0.0-6.0); HEMATOCRIT 28 % (33-45); HEMOGLOBIN 9.1 g/dL (11.5-14.8); LYMPHOCYTES # (AUTO) 1.6 K/uL (0.8-4.8); MEAN CORPUSCULAR HEMOGLOBIN 29 PG (26.0-33.0); MEAN CORPUSCULAR HGB CONC 32 g/dl (31.0-36.0); MEAN CORPUSCULAR VOLUME 91 fL (82-100); MONOCYTES # (AUTO) 1.3 K/uL (0.1-1.30); MONOCYTES % (AUTO) 11.6 % (2.0-12.0); NEUTROPHILS # (AUTO) 8.4 K/uL (1.8-8.9); NEUTROPHILS % (AUTO) 72.8 % (43.0-81.0); PLATELET COUNT (AUTO) 223 K/uL (150-450); RED BLOOD CELL COUNT(AUTO) 3.11 MIL/uL (4.0-5.2); RED CELL DISTRIBUTION WIDTH 15.1 % (11.5-15.0); WHITE BLOOD COUNT (AUTO) 11.6 K/uL (4.3-11.0)
[2024-10-20 06:32] LABS: CREATININE 0.8 mg/dL (0.6-1.3); MAGNESIUM 2.4 mg/dL (1.8-2.4); PHOSPHORUS 2.7 mg/dL (2.5-4.9); POTASSIUM 4.1 mmol/L (3.5-5.1)
[2024-10-20 08:00] VITALS: BP 147/86; TEMP 98.6; O2SAT 97
== END 2024-10-20 14:30 | disposition hospice, inpatient (51) | DRG 871 ==
LOC: ICU 14:19 → MED 10-14 18:05
PROVIDERS: ADMIT Nurse Practitioner Acute Care; ATTEND Nurse Practitioner Acute Care
PROC: 5A1935Z Respiratory Ventilation, Less than 24 Consecutive Hours (ICD-10-PCS; principal; 2024-10-11)
PROC: 0BH17EZ Insertion of Endotracheal Airway into Trachea, Via Natural or Artificial Opening (ICD-10-PCS; 2024-10-11)
PROC: 05HC33Z Insertion of Infusion Device into Left Basilic Vein, Percutaneous Approach (ICD-10-PCS; 2024-10-11)
DX: A41.9 Sepsis, unspecified organism (principal); G93.41 Metabolic encephalopathy; J96.01 Acute respiratory failure with hypoxia; R65.21 Severe sepsis with septic shock; J15.9 Unspecified bacterial pneumonia; N39.0 Urinary tract infection, site not specified; E44.1 Mild protein-calorie malnutrition; E87.0 Hyperosmolality and hypernatremia; N17.9 Acute kidney failure, unspecified; F01.511 Vascular dementia, unspecified severity, with agitation; F20.0 Paranoid schizophrenia; Z66 Do not resuscitate; Z51.5 Encounter for palliative care; E03.9 Hypothyroidism, unspecified; K21.9 Gastro-esophageal reflux disease without esophagitis; I25.10 Atherosclerotic heart disease of native coronary artery without angina pectoris; I10 Essential (primary) hypertension; E11.9 Type 2 diabetes mellitus without complications; E87.6 Hypokalemia; E78.5 Hyperlipidemia, unspecified; M54.50 Low back pain, unspecified; M89.8X9 Other specified disorders of bone, unspecified site; Z78.1 Physical restraint status; Z91.410 Personal history of adult physical and sexual abuse; Z88.0 Allergy status to penicillin; Z88.6 Allergy status to analgesic agent; Z87.440 Personal history of urinary (tract) infections; E86.0 Dehydration; D64.9 Anemia, unspecified; Z79.899 Other long term (current) drug therapy; Z79.01 Long term (current) use of anticoagulants; R00.1 Bradycardia, unspecified
CPT/HCPCS: 36415; 36600; 70450-TC; 71045-TC; 80048-TC; 80053-TC; 81001; 82533; 82607-TC; 82803-TC; 82962-TC; 83605-TC; 83735-TC; 83921; 84100-TC; 84425; 84443-TC; 84484-TC; 85025-TC; 87040-TC; 87081-TC; 87086-TC; 92526; 92611-TC; 93307-TC; 94002-TC; 94799-TC; 97110-TC; 97116-TC; 97530-TC; 97535-TC; A4223; A9563; G0378; J0692; J1650; J2060; J3370; J3371; J3480; J3490; J7030; J7040; J7050; J7060; J7070